=== PATIENT | male | born 1985 | race Hispanic/Latino ===

== ENCOUNTER 2017-08-25 16:00 | Outpatient (CLI) | payer OTHER | END 2017-08-25 16:01 | disposition home or self-care (01) | LOC: SLEEPLAB 16:00 | PROVIDERS: ATTEND Nurse Practitioner Family | DX: G47.33 Obstructive sleep apnea (adult) (pediatric) (principal); E66.9 Obesity, unspecified | CPT/HCPCS: 95806 ==

== ENCOUNTER 2018-08-12 13:34 | Outpatient (CLI) | payer OTHER ==
--- NOTE | 2018-08-12 17:17 | MRI ---
[facility] lumbar spine noncontrast: 08/12/2018 HISTORY: 33-year-old male with chronic low back pain and right lumbar radiculopathy. COMPARISON: None FINDINGS: Irregular density is seen that there are 5 lumbar type vertebrae. Vertebral body heights are maintain ed. Alignment is normal. Bone marrow signal is normal. Conus medullaris terminates at L1-2. Cauda equ donald is arranged in a symmetrical, normal distribution throughout the thecal sac. Degenerative facet c hanges are mild at lower levels. The L4-5 disc is desiccated and mildly narrowed. All other discs hav e normal signal. The L5-S1 disc is slightly hypoplastic. The bilateral L5-S1 facet joints are also sl ightly hypoplastic, especially the right. T12-L1: Normal L1-2: Normal L2-3: Normal L3-4: Small right paracentral disc protrusion slightly indents the right ventral aspect of the thecal sac without causing significant central spinal canal stenosis. It abuts the right L4 nerve root with out displacing it. No neural foraminal stenosis. L4-5: Mild diffuse disc bulge plus superimposed small central and left paracentral shallow disc protr usion with annular fissure indents the ventral aspect of the thecal sac and mildly displaces the left L5 nerve root in the left lateral recess against the left facet complex. No high-grade central spina l canal stenosis or neural foraminal stenosis. L5-S1: No central or neural foraminal stenosis. IMPRESSION: 1. Transitional level at the lumbosacral junction. 2. Mild to moderate degenerative disc disease at L4-5. 3. Small disc protrusions at L3-4 and L4-5. 4. All levels superior to L3 are normal.
== END 2018-08-12 13:35 | disposition home or self-care (01) ==
LOC: SCSMRI 13:34
PROVIDERS: ATTEND Neurological Surgery
DX: M51.16 Intervertebral disc disorders with radiculopathy, lumbar region (principal)
CPT/HCPCS: 72148

== ENCOUNTER 2018-11-13 14:23 | Outpatient (CLI) | payer OTHER ==
--- NOTE | 2018-11-13 14:41 | RAD ---
Exam: XR Hip Rt 2-3 View HISTORY: Right hip pain. COMPARISON: 11/17/2017 FINDINGS: A sclerotic density is again seen in the right femoral head likely related to a small bone island. No additional lytic or sclerotic osseous lesions are seen. No acute fracture, dislocation, or other acute osseous abnormality is identified. IMPRESSION: No acute osseous abnormality is identified.
--- NOTE | 2018-11-13 14:42 | RAD ---
Exam: XR Hip Lt 2-3 View HISTORY: Left hip pain. COMPARISON: None FINDINGS: No acute fracture, dislocation, or other acute osseous abnormality is identified. IMPRESSION: No acute osseous abnormality is identified.
== END 2018-11-13 14:24 | disposition home or self-care (01) ==
LOC: BICRAD 14:23
PROVIDERS: ATTEND Nurse Practitioner Family
DX: M54.16 Radiculopathy, lumbar region (principal)

== ENCOUNTER 2018-12-02 07:57 | Outpatient (CLI) | payer OTHER ==
--- NOTE | 2018-12-02 10:07 | MRI ---
RIGHT HIP MRI WITHOUT IV CONTRAST: Date: 12/02/18 HISTORY: M54.31, right side sciatica, right hip pain. FINDINGS: No evidence for abnormal marrow signal to suggest avascular necrosis, fracture, or acute stress injur y. There is some abnormal fluid density, as well as some irregularity, of the gluteus minimus myotend inous region and tendon insertion region, evidence for full thickness incomplete tearing with some in terstitial tearing and surrounding post-traumatic fluid with some fluid in the subgluteus minimus bur sa, as well as some post-traumatic fluid extending caudally and laterally between the gluteus minimus muscle and the upper lateral vastus lateralis muscle. Abnormal signal associated with the anterior h ip labrum, evidence for a labral tear. No evidence for other significant acute internal derangement. IMPRESSION: Evidence for full thickness incomplete tearing of the gluteus minimus tendon with some associated int erstitial tearing and peritendinous fluid, including some fluid in the subgluteus minimus bursa, as w ell as some post-traumatic fluid extending somewhat laterally and caudally. Evidence for tear involvi ng the anterior acetabular labrum. POS: [facility]
== END 2018-12-02 07:58 | disposition home or self-care (01) ==
LOC: SCSMRI 07:57
PROVIDERS: ATTEND Orthopaedic Surgery
DX: M54.31 Sciatica, right side (principal); S76.311A Strain of muscle, fascia and tendon of the posterior muscle group at thigh level, right thigh, initial encounter

== ENCOUNTER 2019-05-07 09:14 | Outpatient (CLI) | payer OTHER ==
--- NOTE | 2019-05-07 09:52 | ULT ---
EXAM: Abdominal ultrasound PROVIDED CLINICAL HISTORY: None COMPARISON: Epigastric pain FINDINGS: Visualized portions of the pancreas, IVC and aorta appear normal. Liver demonstrates no mass or intrahepatic biliary ductal dilatation. Common duct is nondilated. Gallbladder demonstrates no stones, wall thickening or pericholecystic fluid. Kidneys demonstrate no hydronephrosis or solid mass. Spleen is not enlarged and demonstrates no focal abnormality. IMPRESSION: Unremarkable abdominal ultrasound.
== END 2019-05-07 09:15 | disposition home or self-care (01) ==
LOC: ULT 09:14
PROVIDERS: ATTEND Internal Medicine Gastroenterology
DX: R10.13 Epigastric pain (principal)
CPT/HCPCS: 93975